=== PATIENT | female | born 1940 | race Caucasian/White ===

== ENCOUNTER 2016-12-19 03:06 | Emergency (ER) | payer MEDICARE, BC, OTHER ==
[2016-12-19 03:34] VITALS: BP 160/81
[2016-12-19] MEDS ORDERED: MINERAL OIL 30 ML UDCUP PR ONE (05:00)
[2016-12-19] MEDS ORDERED: MAGNESIUM CITRATE 296 ML BOTTLE PO ONE (06:24)
--- NOTE | 2016-12-19 06:29 | ER Document Report ---
ED GI/ - General Chief Complaint: Constipation Stated Complaint: CONSTIPATION Notes: Patient is a 76-year-old female that comes emergency department for chief complaint of constipation and abdominal bloating. She states she has only had about 4 bowel movements in the past 4 weeks, 4 weeks ago she had a right knee replacement, she is taking Dilaudid because of intolerance to Vicodin and Percocet. She states that she is taking MiraLAX, Ex-Lax, and eating regular fiber but has only had a few stefania of a bowel movement about 2 days ago. She denies any significant abdominal pain, vomiting, fever. TRAVEL OUTSIDE OF THE [place] IN LAST 30 DAYS: No - Related Data Allergies/Adverse Reactions: iodine [Iodine] Allergy (Verified 01/26/16 14:08) Unknown reaction Past Medical History - General Information source: Patient - Social History Smoking Status: Never Smoker Chew tobacco use (# tins/day): No Frequency of alcohol use: None Drug Abuse: None Lives with: Family Family History: Reviewed & Not Pertinent Patient has suicidal ideation: No Patient has homicidal ideation: No - Past Medical History Cardiac Medical History: Reports: Hx Hypertension Denies: Hx Coronary Artery Disease, Hx Heart Attack Pulmonary Medical History: Denies: Hx Asthma, Hx Bronchitis, Hx COPD, Hx Pneumonia Neurological Medical History: Denies: Hx Cerebrovascular Accident, Hx Seizures Renal/ Medical History: Denies: Hx Peritoneal Dialysis Musculoskeltal Medical History: Reports Hx Arthritis Past Surgical History: Reports: Hx Orthopedic Surgery, Hx Tubal Ligation - Immunizations Hx Diphtheria, Pertussis, Tetanus Vaccination: Yes Review of Systems - Review of Systems Constitutional: No symptoms reported EENT: No symptoms reported Cardiovascular: No symptoms reported Respiratory: No symptoms reported Gastrointestinal: See HPI Genitourinary: No symptoms reported Female Genitourinary: No symptoms reported Musculoskeletal: No symptoms reported Skin: No symptoms reported Hematologic/Lymphatic: No symptoms reported Neurological/Psychological: No symptoms reported Physical Exam - Vital signs Vitals: Temp Pulse Resp BP Pulse Ox 98.6 F 94 16 160/81 H 100 12/19/16 03:33 12/19/16 03:33 12/19/16 03:33 12/19/16 03:33 12/19/16 03:33 Interpretation: Normal - General General appearance: Appears well, Alert In distress: None - Patient well-dressed, alert, smiling - HEENT Head: Normocephalic, Atraumatic Eyes: Normal Pupils: PERRL - Respiratory Respiratory status: No respiratory distress Chest status: Nontender Breath sounds: Normal Chest palpation: Normal - Cardiovascular Rhythm: Regular Heart sounds: Normal auscultation Murmur: No - Abdominal Inspection: Normal Distension: Distended - Mild distention Bowel sounds: Normal - Bowel sounds present and appear to be normal Tenderness: Nontender - No significant tenderness noted - Back Back: Normal, Nontender - Extremities General upper extremity: Normal inspection, Nontender, Normal color, Normal ROM , Normal temperature General lower extremity: Normal inspection, Nontender, Normal color, Normal ROM , Normal temperature, Normal weight bearing. No: Akash's sign - Neurological Neuro grossly intact: Yes Cognition: Normal Orientation: AAOx4 Sarita Coma Scale Eye Opening: Spontaneous [place] Coma Scale Verbal: Oriented Sarita Coma Scale Motor: Obeys Commands Sarita Coma Scale Total: 15 Speech: Normal Motor strength normal: LUE, RUE, LLE, RLE Sensory: Normal - Psychological Associated symptoms: Normal affect, Normal mood - Skin Skin Temperature: Warm Skin Moisture: Dry Skin Color: Normal Course - Re-evaluation Re-evalutation: KUB showing moderately large amount of stool per my read, no air-fluid levels or concerning abnormalities. Radiologist reads as no acute abnormalities. Patient given enema, had to moderate sized bowel movements, requests to be given magnesium citrate to take a couple of days if needed, advised her to take this slowly, discussed warning signs of ischemic bowel/pelvic process, she states she'll return immediately she develops any significant pain, vomiting, fever, she states she will start tapering off the narcotics and follow-up with primary care. - Vital Signs Vital signs: Temp Pulse Resp BP Pulse Ox 98.6 F 94 16 160/81 H 100 12/19/16 03:33 12/19/16 03:33 12/19/16 03:33 12/19/16 03:33 12/19/16 03:33 Discharge - Discharge Clinical Impression: Abdominal pain Qualifiers: Abdominal location: generalized Qualified Code(s): R10.84 - Generalized abdominal pain Constipation Qualifiers: Constipation type: drug induced constipation Qualified Code(s): K59.03 - Drug induced constipation Condition: Stable Disposition: HOME, SELF-CARE Additional Instructions: Drink plenty of fluids, try to limit narcotic intake. Continue high fiber diet. Do not drink the magnesium citrate until at least tomorrow. Start slow. Follow-up with your provider as planned. Return immediately if you develop any severe abdominal pain, vomiting, or fever. Referrals: MARCELINO PLASCENCIA MD [Primary Care Provider] - Follow up as needed
== END 2016-12-19 06:38 | disposition home or self-care (01) ==
LOC: ER 03:06
DX: K59.03 Drug induced constipation (principal); R10.84 Generalized abdominal pain; T40.2X5A Adverse effect of other opioids, initial encounter; I10 Essential (primary) hypertension; Z96.651 Presence of right artificial knee joint; Z79.891 Long term (current) use of opiate analgesic
CPT/HCPCS: 99283; 74000; J3490 ×2